=== PATIENT | female | born 1950 | race Caucasian/White ===

== ENCOUNTER → 2023-10-20 10:55 | Outpatient (REF) | payer OTHER, MEDICARE, SELFPAY | LOC: HWWDC 10:55 | PROVIDERS: ATTENDING PHYSICIAN Obstetrics & Gynecology; FAMILY PHYSICIAN Internal Medicine | DX: Z12.31 Encounter for screening mammogram for malignant neoplasm of breast (principal) | CPT/HCPCS: 77063; 77067 ==

== ENCOUNTER → 2024-10-20 10:53 | Outpatient (REF) | payer MEDICARE, SELFPAY | LOC: HWWDC 10:53 | PROVIDERS: ATTENDING PHYSICIAN Obstetrics & Gynecology; FAMILY PHYSICIAN Internal Medicine | DX: Z12.31 Encounter for screening mammogram for malignant neoplasm of breast (principal) | CPT/HCPCS: 77063; 77067 ==

== ENCOUNTER 2024-11-07 02:32 | Emergency (ER) | payer MEDICARE, SELFPAY ==
[2024-11-07 02:40] VITALS: BP 149/80
[2024-11-07 03:15] LABS: Hematocrit 37.7 % (37.0-47.0); Hemoglobin 13.4 g/dL (12.0-16.0); Mean Corp Hgb Conc. 35.5 g/dL (33.0-37.0); Mean Corpuscular Volume 88.3 fL (81.0-99.0); Nucleated Red Blood Cells % 0 %; Platelet Count 221 10^3/uL (130-400); Red Cell Dist. Width 13.4 % (11.5-14.5)
[2024-11-07 03:37] LABS: ALT (SGPT) 30 U/L (0-35); AST (SGOT) 25 U/L (14-36); Albumin 4.4 g/dl (3.5-5.0); Alkaline Phosphatase 62 U/L (38-126); Blood Urea Nitrogen 22 mg/dl (7-17); Calcium 8.9 mg/dl (8.4-10.2); Carbon Dioxide 23 mmol/L (22-30); Chloride 112 mmol/L (98-107); Estimated Creatinine Clearance 54 ml/min; Glucose 123 mg/dl (70-99); Lipase 166 U/L (23-300); Potassium 3.8 mmol/L (3.5-5.1); Sodium 143 mmol/L (135-145); Total Protein 6.9 g/dl (6.3-8.2); eGFR > 60.00
[2024-11-07 03:48] LABS: Troponin I < 0.012 ng/ml
[2024-11-07 05:28] VITALS: BP 93/81
--- NOTE | 2024-11-07 06:24 | ED.GENMED ---
History of Present Illness
General
Chief Complaint: Abdominal Symptoms
Source: patient, records and ambulance crew
Exam Limitations: none
Time Seen by Provider: 11/07/24 06:05
Nursing documentation reviewed up to this point in time: agreed with
History of Present Illness
History of Present Illness:
74-year-old female with a past medical history of hyperlipidemia, anxiety who presents to the emergency department for evaluation of chest pain. Patient reports that she woke up last night in the middle of the night with chest discomfort which she
describes as 'like indigestion.' She says she had a burning sensation in the middle of her chest. She says she had associated diaphoresis and felt some palpitations. She says that symptoms did not seem to be passing very quickly and so she
thought it could be an anxiety attack as she has had these in the past. She says she took a dose of lorazepam which she is prescribed as needed for panic attacks and symptoms did not seem to be going away very quickly and so she called EMS to bring
her to the hospital. She says that since arrival to the hospital symptoms seem to have resolved although she still has some slight burning with swallowing. She denies any shortness of breath. She denies any vomiting or abdominal pain. She denies
any recent cough, fevers, chills. She denies any other acute complaints. She does note that she ate dinner late last night and so wonders whether this could be all from heartburn; she also notes that she has been more prone to anxiety recently
with going through significant health issues. She denies any history of heart issues. She denies any current smoking although she reports distant history of smoking in the past, denies alcohol or drug use.
Past History
Past History
ED Past Medical History: Hypercholesterolemia, Hypothyroidism and Psychiatric (Anxiety, panic attacks)
ED Past Surgical History: Gynecological
Social History
Tobacco: Non-smoker
Alcohol: Occasional
Drug: None
Personal:
Living: with family
Employment: Employed
Review of Systems
Review of Systems
All Other Systems: ROS reviewed and negative except as documented in HPI and ROS
Constitutional: Denies fever
Respiratory: Denies cough or trouble breathing
Cardiac: Reports chest pain, diaphoresis and palpitations; Denies syncope
ABD/GI: Denies abdominal pain, nausea or vomiting
: Denies flank pain
Musculoskeletal: Denies neck pain or back pain
Neurological: Denies dizzy or headache
Phy Exam
Physical Exam
Physical Exam:
General: Awake, alert, oriented x3; no acute distress
Head: Normocephalic, atraumatic
Eyes: Conjunctiva normal, sclera anicteric, pupils equal round and reactive to light bilaterally
Throat: Airway intact, handling secretions
Neck: Trachea midline, supple without meningismus
Lungs: Clear to auscultation bilaterally, no wheezing, rales, rhonchi
Heart: Regular rate and rhythm, no murmurs, gallops, or rubs
Abd: Soft, non distended, nontender
Neuro: No gross deficits
Extremities: No edema in extremities, equal pulses in all extremities
Scores
Heart Failure Risk
Heart Failure Risk Score: Not Applicable
Heart Score for Chest Pain Patients
STEMI patient?: No
History: Slightly or Non-Suspicious
ECG: Normal
Age: >/= 65 years
Risk Factors: 1 or 2 Risk Factors
Troponin: </= Normal Limit
Heart Score for Chest Pain Patients: 3
Heart Score Risk: 2.5% MACE over next 6 weeks
Withdrawal Assessment of Alcohol
Withdrawal Assessment Completed?: Not applicable
Course
Orders/Labs/Results
Orders:
Orders
11/07/24 02:43
EKG [Electrocardiogram (*1)] Urgent
Reason for Study: Chest Pain
EKG- Treatment ONCE
11/07/24 02:54
Complete Blood Count/With Diff Urgent
Comprehensive Metabolic Panel Urgent
Lipase Urgent
Troponin I Urgent
11/07/24 06:05
Troponin I Urgent
11/07/24 06:24
Mag Hydrox/Al Hydrox/Simeth [Maalox] 30 ml Phenobarb/Hyoscy/Atropine/Scop [] 10 ml Viscous Lidocaine 2% [Xylocaine Viscous Cup] 10 ml PO NOW
11/07/24 06:35
Mag Hydrox/Al Hydrox/Simeth [Maalox] 30 ml .ROUTE .STK-MED ONE
Phenobarb/Hyoscy/Atropine/Scop [] 10 ml .ROUTE .STK-MED ONE
11/07/24 06:36
Viscous Lidocaine 2% [Xylocaine Viscous Cup] 15 ml .ROUTE .STK-MED ONE
Abnormal Lab Results
11/07/24
02:54
MCH 31.4 H pg
(27.0-31.0)
Chloride 112 H mmol/L
(98-107)
BUN 22 H mg/dl
(7-17)
Glucose 123 H mg/dl
(70-99)
11/07/24 02:54
11/07/24 02:54
Vital Signs
Initial and Last Documented VS:
Initial Vital Signs
Temp Pulse Resp BP Pulse Ox
37.3 C 76 20 149/80 95
11/07/24 02:40 11/07/24 02:40 11/07/24 02:40 11/07/24 02:40 11/07/24 02:40
Last Documented Vital Signs
Temp Pulse Resp BP Pulse Ox
37.3 C 71 16 121/59 95
11/07/24 02:40 11/07/24 07:00 11/07/24 07:00 11/07/24 07:00 11/07/24 07:00
MDM/Problems Addressed
Differential Diagnosis Includes:
ACS, GERD, anxiety attack
MDM/Problems Addressed:
74-year-old female presents for evaluation of chest pain�woke up in the middle of the night with burning in the chest associated with diaphoresis and palpitations. Took a lorazepam at home, symptoms not improving very quickly which prompted ER
visit although symptoms resolved shortly after arrival here�total duration a little over an hour she says. She now only has some residual burning in her chest with swallowing. Vital signs normal here. She had lab work sent in triage including a
CBC and a CMP which showed no clinically significant abnormalities. Her EKG shows sinus rhythm with no acute ischemia and her initial troponin is undetectable. Will send repeat troponin. Suspect likely GERD with some element of anxiety as
well�very low suspicion for cardiac chest pain. Will trial green grabber. Very low clinical suspicion for other emergent pathology such as PE or aortic dissection and in my judgment no further workup indicated for these diagnoses. Will continue
to monitor here and reassess after the above.
Repeat troponin undetectable. Patient feeling bit better after medication here. Vital signs have been stable. Stable for discharge�suspect likely GERD/indigestion with some anxiety as well. Very low suspicion that this is cardiac chest pain
based on history, exam, negative workup here in the ER. Will have her follow-up with her primary doctor as an outpatient. Patient feels very comfortable with this plan. We did speak about avoiding meals for at least 2 hours before bedtime and
talked about trial of OTC Pepcid. All questions answered.
*Pulse Oximetry
SaO2: 95
Oxygen Mode of Delivery: Room air
Patient hypoxic: no (95%)
*EKG
Interpreted by ED Provider?: Yes
Comparison EKG: no changes
Heart Rate: 79
Rate: normal
Rhythm: sinus
[place]: normal axis
Interval: normal interval
QRS Pattern: normal QRS
Ischemia: no ischemia
*Critical Care Note
Total Time (30-74mins, 75-104mins- exclusive of procedures): Not Applicable
Data Reviewed
Review of Other/Old Records Reveals: Labs and Records
Source: patient and records
ED Attending Note
-
Portions of this chart may have been created with voice recognition software.� Occasional wrong word or��sound alike� substitutions may have occurred due to the inherent limitations of voice recognition software.
Discharge Plan
Departure
Patient Disposition: Home (Routine Discharge)
Date of Disposition: 11/07/24
Time of Disposition: 07:59
Patient with high blood pressure during this ER visit?: No
Discharge Problem:
Chest pain
Instructions: Chest Pain PCP Follow Up
Prescriptions:
No Action
levothyroxine [Synthroid] 75 MCG tablet
75 mcg PO DAILY
paroxetine HCl 20 MG tablet
20 mg PO DAILY
rosuvastatin 10 MG tablet
10 mg PO QPM
prednisone 20 MG tablet
40 mg PO DAILY Qty: 10 0RF
Referrals:
Malik Olson MD [Family Provider, Internal Medicine] - Call in 1-3 days for appt
Activity Restrictions/Additional Instructions:
Thank you for visiting the Emergency Department at [facility].
1. Please schedule a follow up appointment as directed. Call first thing tomorrow morning to make an appointment.
2. If indicated, please take your medications as instructed and indicated on discharge paperwork.
3. If any of your symptoms do not improve, or persist, or become more severe within 6-12 hours, please return to the emergency department for further care.
4. Please return to the emergency department if you develop a headache, neck pain/stiffness, fever greater than 100.4F, chest pain, shortness of breath, persistent nausea, vomiting, slurred speech, difficulty walking, numbness/tingling, weakness,
signs of infection or any other symptoms that are worrisome to you.
Please call [phone] if you have any questions.
Interventions
Interventions:
*Risk Screen - Suicide Last Done: 11/07/24 02:40
*General Assessment Last Done: 11/07/24 02:40
*Neglect/Abuse Screening Last Done: 11/07/24 02:40
*ED- Fall Risk Assessment Last Done: 11/07/24 03:32
*ED COVID-19 Vaccine History Last Done: 11/07/24 03:33
UR-Lxpjet-Bouhryjtuz Assessment Last Done: 11/07/24 03:31
Discharge Date and Time
Print Language: LAO
[2024-11-07] MEDS: MAALOX 50 PO (06:50)
[2024-11-07 07:00] VITALS: BP 121/59
[2024-11-07 07:30] LABS: Troponin I < 0.012 ng/ml
--- NOTE | 2024-11-07 08:35 | EDRN ---
Reviewed discharge instructions with patient. Verbalized understanding. Ambulated with steady gait to the lobby.
[2024-11-07 08:38] VITALS: BP 122/74
== END 2024-11-07 08:30 | disposition home or self-care (01) ==
LOC: EMR 02:32
PROVIDERS: Emergency Medicine; EMERGENCY PHYSICIAN Emergency Medicine; FAMILY PHYSICIAN Internal Medicine
DX: R07.9 Chest pain, unspecified (principal); E78.00 Pure hypercholesterolemia, unspecified; E03.9 Hypothyroidism, unspecified; F41.9 Anxiety disorder, unspecified; F41.0 Panic disorder [episodic paroxysmal anxiety]; Z63.79 Other stressful life events affecting family and household; Z87.891 Personal history of nicotine dependence
CPT/HCPCS: 99284; 80053; 83690; 84484; 85025; 93005

== ENCOUNTER → 2025-02-14 10:18 | Outpatient (REF) | payer MEDICARE, SELFPAY | LOC: RAD 10:18 | PROVIDERS: ATTENDING PHYSICIAN Internal Medicine | DX: M85.80 Other specified disorders of bone density and structure, unspecified site (principal); M85.89 Other specified disorders of bone density and structure, multiple sites | CPT/HCPCS: 77080 ==